=== PATIENT | male | born 1985 | race Native Hawaiian/Other Pacific Islander ===

== ENCOUNTER 2017-08-07 09:22 | Emergency (ER) | payer OTHER ==
[~2017-08-07] VITALS: Ht 165.1 cm; Wt 56.7 kg
[2017-08-07 09:30] VITALS: TEMP 98
[2017-08-07 10:00] VITALS: BP 136/80
== END 2017-08-07 10:06 | disposition home or self-care (01) ==
LOC: ED 09:22
DX: L01.00 Impetigo, unspecified (principal)
CPT/HCPCS: 99281